=== PATIENT | male | born 1955 | race Caucasian/White ===

== ENCOUNTER 2018-12-21 08:33 | Emergency (ER) | payer OTHER ==
[~2018-12-21] VITALS: Ht 165.1 cm; Wt 78.2 kg
[2018-12-21 08:40] VITALS: BP 143/89
--- NOTE | 2018-12-21 08:47 | NUR ---
PATIENT AMBULATED TO BED 5 AT THIS TIME.
--- NOTE | 2018-12-21 09:11 | NUR ---
PT PRESENTS WITH C/O LT KNEE PAIN +4/10 X 2 WKS. ABLE TO AMBULATE W/O DIFFICULTY. DENIES INJURY. AAO X4, GCS 15, AMBULATORY WITH STDEAY GAIT. RESPIATIONS EVEN AND UNALBORED. SKIN WAMR/PINK/DRY, +PMSC. NO APPARENT INJURY. VS WN, DR. HENDERSON MADE AWARE OF PT STATUS
--- NOTE | 2018-12-21 09:40 | NUR ---
EVALUATING PT AT BEDSIDE
[2018-12-21] MEDS ORDERED: IBUPROFEN 800 MG TAB PO ONE (09:45)
[2018-12-21 09:58] VITALS: BP 147/97
--- NOTE | 2018-12-21 09:58 | NUR ---
Patient discharged with v/s stable. Written and verbal after care instructions given and explained. Patient alert, oriented and verbalized understanding of instructions. Ambulatory with steady gait. All questions addressed prior to discharge. ID band removed. Patient advised to follow up with PMD. Rx of MOTRIN 800 MG given. Patient educated on indication of medication including possible reaction and side effects. Opportunity to ask questions provided and answered. LT KNEE IMMOBILIZER IN APPLIED
== END 2018-12-21 09:58 | disposition home or self-care (01) ==
LOC: MED 08:33
DX: S86.812A Strain of other muscle(s) and tendon(s) at lower leg level, left leg, initial encounter (principal); X58.XXXA Exposure to other specified factors, initial encounter; Y93.89 Activity, other specified; Y92.89 Other specified places as the place of occurrence of the external cause; Y99.8 Other external cause status
CPT/HCPCS: 29505; 73562; 99283; Q0092